=== PATIENT | female | born 1975 | race African-American/Black ===

== ENCOUNTER 2018-04-21 10:53 | Emergency (ER) | payer OTHER, SELFPAY ==
[2018-04-21] MEDS ORDERED: Dexamethasone 10 MG/ML VIAL ONE (11:19)
[2018-04-21] MEDS ORDERED: Ketorolac Tromethamine 60 MG/2 ML VIAL ONE (11:50)
[2018-04-21] MEDS ORDERED: Meclizine HCl 25 MG TAB ONE (11:50)
--- NOTE | 2018-04-21 13:24 | RAD ---
PA AND LATERAL VIEWS CHEST: HISTORY: Dyspnea. FINDINGS: Comparison is made with the exam of 09/29/12. The heart size is normal. The lungs are expanded without focal areas of consolidation, pneumothorax, fariba pulmonary edema, or pleural effusions. No acute osseous abnormalities are seen. IMPRESSION: No acute process. POS: [facility]
--- NOTE | 2018-05-09 18:23 | EKG ---
Test Reason : SOB Blood Pressure : / mmHG Vent. Rate : 108 BPM Atrial Rate : 108 BPM P-R Int : 140 ms QRS Dur : 078 ms QT Int : 338 ms P-R-T Axes : 030 021 097 degrees QTc Int : 452 ms Sinus tachycardia T wave abnormality, consider lateral ischemia Abnormal ECG Confirmed by DERRICK FLORES D.O. ([id number]), editor producer MARAL RAMESH ([id number] on 05/09/2018 6:22:32 PM Referred By: Confirmed By:DERRICK FLORES D.O.
== END 2018-04-21 13:17 | disposition home or self-care (01) ==
LOC: ERS 10:53
DX: J06.9 Acute upper respiratory infection, unspecified (principal); E78.5 Hyperlipidemia, unspecified; E66.9 Obesity, unspecified; F17.210 Nicotine dependence, cigarettes, uncomplicated
CPT/HCPCS: 71046; 93005; 94640; 96372; J1100; J1885; J7620

== ENCOUNTER 2019-03-24 09:17 | Emergency (ER) | payer OTHER, SELFPAY ==
[2019-03-24] MEDS ORDERED: Ketorolac Tromethamine 60 MG/2 ML VIAL ONE (10:40)
--- NOTE | 2019-03-24 11:02 | RAD ---
LEFT FOOT 3 VIEWS: HISTORY: Left foot pain for 3 months with swelling without evidence for injury. FINDINGS/IMPRESSION: Mild degenerative changes. No fracture, dislocation, or other acute process. POS: [facility]
== END 2019-03-24 11:10 | disposition home or self-care (01) ==
LOC: ERS 09:17
DX: M10.9 Gout, unspecified (principal); E78.5 Hyperlipidemia, unspecified; E66.9 Obesity, unspecified; F17.290 Nicotine dependence, other tobacco product, uncomplicated
CPT/HCPCS: 96372; J1885

== ENCOUNTER 2021-03-17 12:15 | Emergency (ER) | payer OTHER ==
[2021-03-17] MEDS ORDERED: Ketorolac Tromethamine 30 MG/ML VIAL ONE (12:52)
== END 2021-03-17 13:07 | disposition home or self-care (01) ==
LOC: ERS 12:15
DX: M54.5 Low back pain (principal); E78.5 Hyperlipidemia, unspecified; E78.00 Pure hypercholesterolemia, unspecified; E66.9 Obesity, unspecified; F17.290 Nicotine dependence, other tobacco product, uncomplicated
CPT/HCPCS: 72100; 96372; J1885